=== PATIENT | female | born 1970 | race African-American/Black ===

== ENCOUNTER 2025-05-02 13:35 | Emergency (ER) | payer BC, MEDICAID, OTHER ==
[~2025-05-02] VITALS: Ht 167.6 cm; Wt 82.0 kg
[2025-05-02 13:44] VITALS: O2SAT 98
[2025-05-02] MEDS: IBUPROFEN 600MG TABLET PO ONE (14:45)
[2025-05-02] MEDS ORDERED: IBUP-1455 MT (16:27)
[2025-05-02] MEDS: ACETAMINOPHEN 325MG TABLET PO ONE (16:36)
[2025-05-02 16:45] VITALS: BP 113/72; PULSE 99; RESP 18; TEMP 37.1; O2SAT 100
== END 2025-05-02 16:52 | disposition home or self-care (01) ==
LOC: ER 13:35
DX: S09.90XA Unspecified injury of head, initial encounter (principal); M25.511 Pain in right shoulder; E11.9 Type 2 diabetes mellitus without complications; V49.40XA Driver injured in collision with unspecified motor vehicles in traffic accident, initial encounter; Y93.89 Activity, other specified; Y92.89 Other specified places as the place of occurrence of the external cause; Y99.8 Other external cause status
CPT/HCPCS: 73030; 99291